=== PATIENT | male | born 1995 | race Caucasian/White ===

== ENCOUNTER 2016-11-02 17:17 | Emergency (ER) | payer BC, OTHER ==
--- NOTE | 2016-11-02 17:43 | ED ---
General Adult HPI - General Chief complaint: Extremity Injury, Upper Stated complaint: RT HAND INJURY [facility] Time Seen by Provider: 11/02/16 17:33 Source: patient, RN notes reviewed Mode of arrival: ambulatory Limitations: no limitations - History of Present Illness Initial comments: Patient is a 20-year-old male who presents emergency room today with a chief complaint of a hand injury that occurred at work just prior to arrival. He does admit that he was pushing some cards when he accidentally got it stuck between 2 of them pushing his hand into another car. He states he does have pain over the fourth and fifth MCP joint. Patient denies any other complaints or associated symptoms. Patient denies any recent fever, chills, shortness of breath, chest pain, back pain, abdominal pain, nausea or vomiting, numbness or tingling, dysuria or hematuria, constipation or diarrhea, headaches or visual changes, or any other complaints. - Related Data Home Medications Medication Instructions Recorded Confirmed No Known Home Medications [No 11/02/16 11/02/16 Known Home Medications] Allergies Allergy/AdvReac Type Severity Reaction Status Date / Time No Known Allergies Allergy Verified 11/02/16 17:55 Review of Systems ROS Statement: Those systems with pertinent positive or pertinent negative responses have been documented in the HPI. ROS Other: All systems not noted in ROS Statement are negative. Past Medical History Past Medical History: No Reported History History of Any Multi-Drug Resistant Organisms: None Reported Past Surgical History: Ear Surgery Past Psychological History: No Psychological Hx Reported Smoking Status: Current every day smoker Past Alcohol Use History: None Reported Past Drug Use History: None Reported General Exam - General Exam Comments Initial Comments: General: The patient is awake and alert, in no distress, and does not appear acutely ill. Neck: The neck is supple, there is no tenderness or JVD. Cardiovascular: There is a regular rate and rhythm. No murmur, rub or gallop is appreciated. Respiratory: Lungs are clear to auscultation, respirations are non-labored, breath sounds are equal. No wheezes, stridor, rales, or rhonchi. Musculoskeletal: Patient does have some swelling locally around the fifth MCP joint. He is locally tender in this area. No other bony tenderness. No tenderness to the right wrist or elbow. Sensations are intact pulses equal bilaterally 2+. Cap refill less than 2 seconds. Neurological: A&O x 3. CN II-XII intact, There are no obvious motor or sensory deficits. Coordination appears grossly intact. Speech is normal. Skin: Skin is warm and dry and no rashes or lesions are noted. Psychiatric: Normal mood and affect. Limitations: no limitations Course Vital Signs 11/02/16 17:23 Temperature 97.5 F L Pulse Rate 65 Respiratory 20 Rate Blood Pressure 101/42 O2 Sat by Pulse 99 Oximetry Medical Decision Making - Medical Decision Making Case discussed in detail with attending physician Dr. singh. Patient's x-ray reviewed does show a displaced fracture of the fifth metacarpal. Results were discussed with the patient. Patient splinted in a short arm ulnar gutter splint. Neurovascular rechecked and intact. Advised to follow-up with orthopedics over the next 1-2 days. Patient states understanding and is in agreement. Disposition Clinical Impression: Boxers fracture Disposition: HOME SELF-CARE Condition: Good Instructions: Boxer Fracture (ED) Additional Instructions: Please see splinted in place until follow-up appointment with orthopedics over the next 1-2 days. Please continue to ice elevate the affected areas 4 times a day for 20 minutes at a time. Please return to emergency room if any symptoms increase or worsen or for any other concerns. Referrals: None,Stated [Primary Care Provider] - 1-2 days Ruperto Mcbride MD [Medical Doctor] - 1-2 days Time of Disposition: 18:17
--- NOTE | 2016-11-02 18:04 | XR ---
EXAMINATION TYPE: XR hand complete RT DATE OF EXAM: 11/02/2016 5:56 PM CLINICAL HISTORY: Right hand pain after crushing injury today. TECHNIQUE: Frontal, lateral and oblique images of the right hand are obtained. COMPARISON: None. FINDINGS: There is acute displaced comminuted fracture through fifth metacarpal distal metadiaphysis . There is abnormal volar and radial angulation. The joint spaces in the right hand appear within nor mal limits. The overlying soft tissue appears unremarkable. IMPRESSION: There is acute comminuted displaced fracture through distal metadiaphysis of fifth metac arpal. (Boxer type fracture) Initial encounter close type post traumatic fracture.
[2016-11-02 19:14] VITALS: BP 110/68; PULSE 87; RESP 16; TEMP 97
== END 2016-11-02 19:14 | disposition home or self-care (01) ==
LOC: EC 17:17
DX: S62.326A Displaced fracture of shaft of fifth metacarpal bone, right hand, initial encounter for closed fracture (principal); F17.200 Nicotine dependence, unspecified, uncomplicated; W23.0XXA Caught, crushed, jammed, or pinched between moving objects, initial encounter; Y99.0 Civilian activity done for income or pay
CPT/HCPCS: 29125; 99283

== ENCOUNTER 2017-02-03 17:37 | Emergency (ER) | payer BC, OTHER ==
[2017-02-03 18:02] VITALS: RESP 18
--- NOTE | 2017-02-03 18:16 | ED ---
General Adult HPI - General Chief complaint: Seizure Stated complaint: Seizures Time Seen by Provider: 02/03/17 17:50 Source: patient, RN notes reviewed Mode of arrival: EMS - History of Present Illness Initial comments: This is a 21-year-old male who presents emergency Department with his mother. Patient states he started having left arm twitching which ran up into his neck and then he started making some weird sounds with his mouth in the next thing he knows he woke up with people around him. According to the mother when she got into the room he had fallen off the couch shaking which appeared to her to be a seizure. She stated it lasted for about 30-45 seconds. Patient states for the last year he had a few episodes where he started feeling a little off and making where sounds in his mouth but it never got to the point where he didn 't remember anything or that he was unconscious. Patient states he does not take any medications except for occasional melatonin. Mother makes mention that he was on some anti-malaria medication about a year ago prior to going to the [facility] but besides that she is not aware of anything else that he takes. Patient denies any drug use. Patient denies any headache patient denies numbness weakness. Patient denies chest pain palpation difficulty breathing or shortness of breath. Patient denies any abdominal pain. Patient denies nausea vomiting diarrhea. Patient has a job at the local [employer] and there are no chemicals in the area. - Related Data Home Medications Medication Instructions Recorded Confirmed Melatonin 5 mg PO HS 02/03/17 02/03/17 Allergies Allergy/AdvReac Type Severity Reaction Status Date / Time No Known Allergies Allergy Verified 02/03/17 18:17 Review of Systems ROS Statement: Those systems with pertinent positive or pertinent negative responses have been documented in the HPI. ROS Other: All systems not noted in ROS Statement are negative. Past Medical History Past Medical History: No Reported History Additional Past Medical History / Comment(s): [place] History of Any Multi-Drug Resistant Organisms: None Reported Past Surgical History: Ear Surgery Past Psychological History: No Psychological Hx Reported Smoking Status: Never smoker Past Alcohol Use History: Rare Past Drug Use History: None Reported General Exam - General Exam Comments Initial Comments: GENERAL: Patient is well-developed and well-nourished. Patient is nontoxic and well- hydrated and is in no acute distress. ENT: Neck is soft and supple. No significant lymphadenopathy is noted. Oropharynx is clear. Moist mucous membranes. Neck has full range of motion without eliciting any pain. EYES: The sclera were anicteric and conjunctiva were pink and moist. Extraocular movements were intact and pupils were equal round and reactive to light. Eyelids were unremarkable. PULMONARY: Unlabored respirations. Good breath sounds bilaterally. No audible rales rhonchi or wheezing was noted. CARDIOVASCULAR: There is a regular rate and rhythm without any murmurs gallops or rubs. ABDOMEN: Soft and nontender with normal bowel sounds. No palpable organomegaly was noted. There is no palpable pulsatile mass. SKIN: Skin is clear with no lesions or rashes and otherwise unremarkable. NEUROLOGIC: Patient is alert and oriented x3. Cranial nerves II through XII are grossly intact. Motor and sensory are also intact. Normal speech, volume and content. Symmetrical smile. MUSCULOSKELETAL: Normal extremities with adequate strength and full range of motion. No lower extremity swelling or edema. No calf tenderness. LYMPHATICS: No significant lymphadenopathy is noted PSYCHIATRIC: Normal psychiatric evaluation. Normal interpersonal interactions appears functionally intact in deals appropriately with others. No signs of depression. No signs of anxiety. No delusions. No hallucinations. Course Vital Signs 02/03/17 02/03/17 17:43 19:10 Temperature 98.2 F 99.2 F Pulse Rate 86 80 Respiratory 18 18 Rate Blood Pressure 126/65 122/72 O2 Sat by Pulse 98 100 Oximetry Medical Decision Making - Medical Decision Making EKG shows normal sinus rhythm at 93 bpm TX interval is 166 QRS is 112 QT interval 354 QTC is 440. Patient's EKG shows no ST segment elevation or depression or T wave abnormalities are noted CT of the brain shows a left frontal lobe mass. Does not appear to be any edema surrounding the mass. Family requesting to go to [facility]. I spoke with [facility] and they accepted the patient to the emergency department. Patient remained asymptomatic throughout his ED course - Lab Data Result diagrams: 02/03/17 18:07 02/03/17 18:07 Lab Results 02/03/17 02/03/17 02/03/17 Range/Units 18:07 18:07 19:32 WBC 6.6 (3.8-10.6) k/uL RBC 5.29 (4.30-5.90) m/uL Hgb 15.9 (13.0-17.5) gm/dL Hct 47.4 (39.0-53.0) % MCV 89.6 (80.0-100.0) fL MCH 30.0 (25.0-35.0) pg MCHC 33.5 (31.0-37.0) g/dL RDW 13.4 (11.5-15.5) % Plt Count 255 (150-450) k/uL Neutrophils % 72 % Lymphocytes % 21 % Monocytes % 5 % Eosinophils % 1 % Basophils % 1 % Neutrophils # 4.7 (1.3-7.7) k/uL Lymphocytes # 1.4 (1.0-4.8) k/uL Monocytes # 0.3 (0-1.0) k/uL Eosinophils # 0.0 (0-0.7) k/uL Basophils # 0.1 (0-0.2) k/uL Sodium 138 (137-145) mmol/L Potassium 3.9 (3.5-5.1) mmol/L Chloride 103 (98-107) mmol/L Carbon Dioxide 24 (22-30) mmol/L Anion Gap 11 mmol/L BUN 18 (9-20) mg/dL Creatinine 0.86 (0.66-1.25) mg/dL Est GFR (MDRD) Af Amer >60 (>60 ml/min/1.73 sqM) Est GFR (MDRD) Non-Af >60 (>60 ml/min/1.73 sqM) Glucose 99 (74-99) mg/dL Calcium 9.7 (8.4-10.2) mg/dL Magnesium 2.4 H (1.6-2.3) mg/dL Total Bilirubin 0.5 (0.2-1.3) mg/dL AST 23 (17-59) U/L ALT 21 (21-72) U/L Alkaline Phosphatase 73 (38-126) U/L Total Protein 7.7 (6.3-8.2) g/dL Albumin 4.8 (3.5-5.0) g/dL Urine Opiates Screen Not Detected (NotDetected) Ur Oxycodone Screen Not Detected (NotDetected) Urine Methadone Screen Not Detected (NotDetected) Ur Propoxyphene Screen Not Detected (NotDetected) Ur Barbiturates Screen Not Detected (NotDetected) U Tricyclic Antidepress Not Detected (NotDetected) Ur Phencyclidine Scrn Not Detected (NotDetected) Ur Amphetamines Screen Not Detected (NotDetected) U Methamphetamines Scrn Not Detected (NotDetected) U Benzodiazepines Scrn Not Detected (NotDetected) Urine Cocaine Screen Not Detected (NotDetected) U Marijuana (THC) Screen Not Detected (NotDetected) Disposition Clinical Impression: New onset seizure, Frontal mass of brain Disposition: OTHER INSTITUTION NOT DEFINED Time of Disposition: 20:27 - Out of Hospital Transfer - Req. Specs Out of Hospital Transfer - Requested Specifics: Other Emergency Center ([facility])
[2017-02-03 18:42] LABS: Basophils # (A) 0.1 k/uL (0-0.2); Basophils % (A) 1 %; CH 30.5; CHCM 34.2; Eosinophils % (A) 1 %; HCT 47.4 % (39.0-53.0); HDW 2.61; HGB 15.9 gm/dL (13.0-17.5); Luc # (Auto) 0.08; Luc % (Auto) 1; Lymphocytes # (A) 1.4 k/uL (1.0-4.8); Lymphocytes % (A) 21 %; MCHC 33.5 g/dL (31.0-37.0); MCV 89.6 fL (80.0-100.0); Mean Platelet Volume 6.4; Monocytes # (A) 0.3 k/uL (0-1.0); Monocytes % (A) 5 %; Neutrophils # (A) 4.7 k/uL (1.3-7.7); Neutrophils % (A) 72 %; RBC 5.29 m/uL (4.30-5.90); RDW 13.4 % (11.5-15.5); WBC 6.6 k/uL (3.8-10.6); WBC (Perox) 6.29
[2017-02-03 18:48] LABS: ALT 21 U/L (21-72); AST 23 U/L (17-59); Alkaline Phosphatase 73 U/L (38-126); Anion Gap 11 mmol/L; Blood Urea Nitrogen 18 mg/dL (9-20); Calcium 9.7 mg/dL (8.4-10.2); Carbon Dioxide 24 mmol/L (22-30); Chloride 103 mmol/L (98-107); Glucose 99 mg/dL (74-99); Magnesium 2.4 mg/dL (1.6-2.3); Non-African American GFR(MDRD) >60 (>60 ml/min/1.73 sqM); Potassium 3.9 mmol/L (3.5-5.1); Sodium 138 mmol/L (137-145); Total Bilirubin 0.5 mg/dL (0.2-1.3); Total Protein 7.7 g/dL (6.3-8.2)
--- NOTE | 2017-02-03 19:09 | XR ---
EXAMINATION TYPE: XR chest 2V DATE OF EXAM: 02/03/2017 7:03 PM COMPARISON: Chest x-ray June 27, 1997. HISTORY: Difficulty breathing per order. TECHNIQUE: Frontal and lateral views of the chest are obtained. FINDINGS: There is no focal air space opacity, pleural effusion, or pneumothorax seen. The cardiac silhouette size is within normal limits. The osseous structures are intact. IMPRESSION: No acute cardiopulmonary process.
--- NOTE | 2017-02-03 19:09 | CT ---
EXAMINATION TYPE: CT brain wo con DATE OF EXAM: 02/03/2017 7:01 PM COMPARISON: NONE HISTORY: Seizure like activity today. CT DLP: 1049 mGycm. Automated Exposure Control for Dose Reduction was Utilized. TECHNIQUE: CT scan of the head is performed without contrast. FINDINGS: There is no acute intracranial hemorrhage identified. The ventricles and sulci are withi n normal limits in size. In the medial aspect left frontal lobe there is 3.8 x 2.9 cm lesion transver sely measuring 4.0 cm in craniocaudal dimension that is heterogeneously hypodense with local mass eff ect and subtle midline shift at this level. The globes are intact and the visualized sinuses are vianey r. Patchy soft tissue density left extra auditory canal likely reflects cerumen. IMPRESSION: No acute intracranial hemorrhage is seen. Abnormal 4 cm area left frontal lobe favors in traparenchymal mass or neoplasm. Further investigation with contrast-enhanced MRI is advised to yudelka r evaluate and characterize.
[2017-02-03 20:34] VITALS: BP 122/80; PULSE 74; TEMP 99
== END 2017-02-03 21:09 | disposition other institution (70) ==
LOC: EC 17:37
DX: R56.9 Unspecified convulsions (principal); G93.9 Disorder of brain, unspecified; Z79.899 Other long term (current) drug therapy
CPT/HCPCS: 36415; 70450; 71020; 80053; 80306; 83735; 85025; 93005; 99285

== ENCOUNTER 2020-09-23 12:04 | Emergency (ER) | payer BC ==
[2020-09-23 12:16] VITALS: RESP 18; TEMP 98
[2020-09-23 13:48] LABS: Appearance,Urine Clear (Clear); Bilirubin,Urine Negative (Negative); Blood,Urine Negative (Negative); Color,Urine Light Yellow; Glucose,Urine (UA) Negative (Negative); Ketones,Urine Negative (Negative); Leukocyte Esterase,Urine Negative (Negative); Nitrite,Urine Negative (Negative); Protein,Urine Negative (Negative); Specific Gravity,Urine 1.008 (1.001-1.035); Urobilinogen,Urine <2.0 mg/dL (<2.0)
--- NOTE | 2020-09-23 14:34 | US ---
EXAMINATION TYPE: US scrotum with doppler. Grayscale and color Doppler Duplex imaging performed of t he scrotum. DATE OF EXAM: 09/23/2020 COMPARISON: NONE CLINICAL HISTORY: right sided pain/swelling x 2 days. Right side pain. No injury. EXAM MEASUREMENTS: TESTICLES: Right Testicle: 4.1 x 4.6 x 2.5 cm Left Testicle: 4.8 x 2.7 x 2.6 cm EPIDIDYMIS HEAD: Right Epididymis: 2.5 x 1.5 x 1.7 cm Left Epididymis: 1.0 x 0.9 x 0.6 cm Doppler performed to assess for testicular vascularity; good bilateral color flow and waveforms are s een. There is no evidence of testicular torsion. Presence of hydroceles: Right Presence of varicoceles: no Right epididymis appears enlarged and heterogenous. IMPRESSION: No evidence of testicular torsion or mass. There is small right-sided hydrocele. There is significant enlargement of the right epididymis with increased vascularity consistent with epididymi tis.
--- NOTE | 2020-09-23 14:37 | ED ---
Male Urogenital HPI - General Chief complaint: Urogenital Stated complaint: Testicular Pain Time Seen by Provider: 09/23/20 13:08 Source: patient Mode of arrival: ambulatory Limitations: no limitations - History of Present Illness Initial comments: Patient is a 24-year-old male presenting to emergency Department with complaints of right-sided testicular pain over the past 3 days. Patient states he went to urgent care today and they recommended him going to the ER for a possible ultrasound. Patient denies any fever, chills, nausea, vomiting. He states he feels some intermittent achiness on the right side, some mild swelling to the area. He denies any trauma or injuries. He denies any penile discharge or concerns for STDs. He denies any urinary complaints. He states otherwise has been feeling his normal self. Patient has no further complaints at this time. - Related Data Home Medications Medication Instructions Recorded Confirmed Melatonin 5 mg PO HS 02/03/17 02/03/17 Previous Rx's Medication Instructions Recorded Doxycycline Monohydrate [Monodox] 100 mg PO BID 10 Days #20 cap 09/23/20 Allergies Allergy/AdvReac Type Severity Reaction Status Date / Time No Known Allergies Allergy Verified 09/23/20 12:13 Review of Systems ROS Statement: Those systems with pertinent positive or pertinent negative responses have been documented in the HPI. ROS Other: All systems not noted in ROS Statement are negative. Past Medical History Past Medical History: No Reported History Additional Past Medical History / Comment(s): [place], astrocytoma 2017 History of Any Multi-Drug Resistant Organisms: None Reported Past Surgical History: Ear Surgery Additional Past Surgical History / Comment(s): brain surgery Past Psychological History: No Psychological Hx Reported Smoking Status: Never smoker Past Alcohol Use History: Occasional Past Drug Use History: None Reported General Exam - General Exam Comments Initial Comments: GENERAL: Patient is well-developed and well-nourished. Patient is nontoxic and in no acute distress. HEAD: Atraumatic, normocephalic. EYES: Pupils equal round and reactive to light, extraocular movements intact, sclera anicteric, conjunctiva are normal. Eyelids were unremarkable. ENT: TMs normal, nares patent, oropharynx clear without exudates. Moist mucous membranes. NECK: Normal range of motion, supple without lymphadenopathy or JVD. LUNGS: Unlabored respirations. Breath sounds clear to auscultation bilaterally and equal. No wheezes rales or rhonchi. HEART: Regular rate and rhythm without murmurs, rubs or gallops. ABDOMEN: Soft, nontender, normoactive bowel sounds. No guarding, no rebound. No masses appreciated. : Some mild tenderness with palpation of the right testicle, some mild swelling of that side as well, no erythema, no other acute findings. MUSCULOSKELETAL: Normal extremities with adequate strength and normal range of motion, no pitting or edema. No clubbing or cyanosis. NEUROLOGICAL: Patient is alert and oriented x 3. Motor and sensory are also intact. Cranial nerves II through XII grossly intact. Symmetrical smile. Normal speech, normal gait. PSYCH: Normal mood, normal affect. SKIN: Warm, Dry, normal turgor, no rashes or lesions noted. Limitations: no limitations Course Vital Signs 09/23/20 12:13 Temperature 98 F Pulse Rate 89 Respiratory 18 Rate Blood Pressure 137/87 O2 Sat by Pulse 98 Oximetry Medical Decision Making - Medical Decision Making Patient is a 24 [id number] male here for right-sided testicular pain 3 days. His vital signs are stable, afebrile. His UA shows no signs of infection, he has no concerns for STDs. Ultrasound of the scrotum reveals no evidence of testicular torsion or mass there is a small right-sided hydrocele there is significant enlargement of the right epididymis with increased vascularity consistent with epididymitis. Gonorrhea and chlamydia are pending at this time. I will treat patient with 250 mg Rocephin and answer, and doxycycline. Patient is stable for discharge. He is in agreement with this plan of care. I did give him PCP follow-up. Return parameters were discussed with the patient and he verbalized understanding. Case discussed with Dr. Miguel. - Lab Data Lab Results 09/23/20 Range/Units 13:28 Urine Color Light Yellow Urine Appearance Clear (Clear) Urine pH 7.0 (5.0-8.0) Ur Specific [place] 1.008 (1.001-1.035) Urine Protein Negative (Negative) Urine Glucose (UA) Negative (Negative) Urine Ketones Negative (Negative) Urine Blood Negative (Negative) Urine Nitrite Negative (Negative) Urine Bilirubin Negative (Negative) Urine Urobilinogen <2.0 (<2.0) mg/dL Ur Leukocyte Esterase Negative (Negative) Disposition Clinical Impression: Epididymitis, right, Right testicular pain Disposition: HOME SELF-CARE Condition: Stable Instructions (If sedation given, give patient instructions): Epididymitis (ED) Additional Instructions: Please return to the Emergency Department if symptoms worsen or any other concerns. Ultrasound shows evidence for epididymitis today. Take antibiotics as prescribed, complete entire course. Follow-up with PCP. Prescriptions: Doxycycline Monohydrate [Monodox] 100 mg PO BID 10 Days #20 cap Is patient prescribed a controlled substance at d/c from ED?: No Referrals: None,Stated [Primary Care Provider] - 1-2 days Isela Cohen MD [STAFF PHYSICIAN] - 1-2 days
[2020-09-23] MEDS ORDERED: cefTRIAXone 250 MG VIAL IM STA (14:58)
[2020-09-23 15:23] VITALS: BP 126/78; PULSE 80
== END 2020-09-23 15:23 | disposition home or self-care (01) ==
LOC: EC 12:04
DX: N50.811 Right testicular pain (principal); N45.1 Epididymitis; Z85.841 Personal history of malignant neoplasm of brain
CPT/HCPCS: 81003; 87491; 87591; 93975; 76870; 99284; 96372; J0696